=== PATIENT | male | born 1955 | race Caucasian/White ===

== ENCOUNTER 2018-10-18 10:54 | Emergency (ER) | payer OTHER, MEDICARE, BC ==
[~2018-10-18] VITALS: Ht 177.8 cm; Wt 73.6 kg
[2018-10-18 10:54] VITALS: BP 156/91
[2018-10-18 13:11] LABS: BASO # 0.1 10^3/uL (0.0-0.2); BASO % 0.4 % (0.0-1.0); EOS # 0.3 10^3/uL (0.0-0.50); HEMATOCRIT 45.5 % (42.0-52.0); HEMOGLOBIN 15.3 g/dl (13.5-17.5); LYMPH # 2.4 10^3/uL (1.5-4.5); MEAN CORPUSCULAR HEMOGLOBIN 31.5 pg (27.0-33.0); MEAN CORPUSCULAR HGB CONC 33.6 g/dl (32.0-36.5); MEAN CORPUSCULAR VOLUME 93.6 fl (80.0-96.0); MONO # 0.9 10^3/uL (0.0-0.8); MONO % 6.1 % (0.0-5.0); NEUTROPHILS # 10.6 10^3/uL (1.8-7.7); NEUTROPHILS % 74.2 % (36.0-66.0); PLATELET COUNT, AUTOMATED 380 10^3/uL (150-450); RED BLOOD COUNT 4.86 10^6/uL (4.30-6.10); WHITE BLOOD COUNT 14.3 10^3/uL (4.0-10.0)
[2018-10-18 13:30] LABS: BLOOD UREA NITROGEN 22 MG/DL (7-18); CALCIUM LEVEL 9.4 MG/DL (8.8-10.2); CARBON DIOXIDE LEVEL 26 MEQ/L (21-32); CHLORIDE LEVEL 108 MEQ/L (98-107); CREATININE FOR GFR 1.06 MG/DL (0.70-1.30); GLOMERULAR FILTRATION RATE > 60.0 (>49); GLUCOSE, FASTING 91 MG/DL (70-100); POTASSIUM SERUM 4.3 MEQ/L (3.5-5.1); SODIUM LEVEL 142 MEQ/L (136-145); URIC ACID 4.4 MG/DL (3.5-7.2)
[2018-10-18 13:38] LABS: ERYTHROCYTE SEDIMENTATION RATE 8 mm/hr (0-20)
[2018-10-18] MEDS ORDERED: KETOROLAC 60 MG/2 ML VIAL (J1885) IM ONE (14:15)
--- NOTE | 2018-10-18 14:45 | REP ---
Right elbow for views: There are no comparisons. There is a lucency in the anteromedial cortex at the diametaphysis of the proximal radius. There is a small calcification centrally within this lucency. There is no associated periosteal reactive change. Mineralization and joint spaces otherwise are unremarkable. There is no fracture or dislocation. No joint effusion. Impression: Focal corner lucency in the proximal radius as described. This is nonspecific and may represent fibrous cortical defect or bone cyst. However, there are no comparison studies to document stability. This in combination with the clinical symptoms of pain and swelling suggest this may be a more aggressive lesion. Followup MRI might be considered for further evaluation. Electronically Signed by Livan Maxwell MD 10/18/2018 02:37 P
--- NOTE | 2018-10-18 15:36 | REP ---
CT scan right elbow without contrast: History: Elbow pain and swelling. Erythema and tenderness. Elevated white blood cell count. Comparison radiographs are from earlier on this date. The radiographs were felt to show a proximal radial radiolucency. CT technique: Helical scanning is acquired and 2 mm axial images are reviewed. Coronal and sagittal MPR images are generated and reviewed. 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 There is spurring and periarticular soft-tissue calcification at the lateral and to a lesser extent, medial epicondyle. There is a small periarticular calcification adjacent to the neck of the proximal radius on its medial side toward the ulna. There is no evidence of radiolucent bone lesion in the proximal radius or elsewhere. No fracture or erosive changes seen. There is no evidence of significant joint effusion or periarticular fluid collection. No soft tissue gas is seen. 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 No acute bony abnormality. No radiolucent bone lesions seen. Electronically Signed by Khurram Rasmussen MD 10/18/2018 04:44 P
[2018-10-18] MEDS ORDERED: KETO10TAB PO (15:40)
[2018-10-18] MEDS ORDERED: CLEO300C2 PO (15:40)
--- NOTE | 2018-10-22 07:54 | ED PDOC ---
Post-Departure Follow-Up dr neves faxed formal report of right elbow for Carlos Goyal MD Oct 22, 2018 07:54
== END 2018-10-18 15:53 | disposition home or self-care (01) ==
LOC: M ED 10:54
DX: L03.113 Cellulitis of right upper limb (principal); M70.31 Other bursitis of elbow, right elbow; M77.11 Lateral epicondylitis, right elbow; M25.721 Osteophyte, right elbow; Z87.891 Personal history of nicotine dependence; Z88.0 Allergy status to penicillin
CPT/HCPCS: 73080; 73200; 80048; 84550; 85025; 85652; 96372; 99283; J1885

== ENCOUNTER → 2019-04-15 | Outpatient (CLI) | payer MEDICARE, BC ==
[~2019-04-15] MED LIST: CLEO300C2 PO; KETO10TAB PO
[2019-04-15 12:45] LABS: BASO # 0.1 10^3/uL (0.0-0.2); BASO % 0.7 % (0.0-1.0); EOS # 0.4 10^3/uL (0.0-0.5); EOS % 4.6 % (0.0-3.0); HEMATOCRIT 46.2 % (42.0-52.0); HEMOGLOBIN 15.1 g/dl (13.5-17.5); LYMPH # 2.4 10^3/uL (1.5-5.0); LYMPH % 29.7 % (24.0-44.0); MEAN CORPUSCULAR HEMOGLOBIN 30.6 pg (27.0-33.0); MEAN CORPUSCULAR HGB CONC 32.7 g/dl (32.0-36.5); MEAN CORPUSCULAR VOLUME 93.7 fl (80.0-96.0); MONO # 0.5 10^3/uL (0.0-0.8); MONO % 6.5 % (0.0-5.0); NEUTROPHILS # 4.8 10^3/uL (1.5-8.5); NEUTROPHILS % 58.4 % (36.0-66.0); PLATELET COUNT, AUTOMATED 347 10^3/uL (150-450); RED BLOOD COUNT 4.93 10^6/uL (4.30-6.10); WHITE BLOOD COUNT 8.2 10^3/uL (4.0-10.0)
[2019-04-15 12:50] LABS: ALT/SGPT 43 U/L (12-78); BILIRUBIN,TOTAL 0.6 MG/DL (0.2-1.0); BLOOD UREA NITROGEN 16 MG/DL (7-18); CALCIUM LEVEL 9.3 MG/DL (8.8-10.2); CARBON DIOXIDE LEVEL 27 MEQ/L (21-32); CHLORIDE LEVEL 109 MEQ/L (98-107); CREATININE FOR GFR 1.07 MG/DL (0.70-1.30); GLOMERULAR FILTRATION RATE > 60.0 (>49); GLUCOSE, FASTING 92 MG/DL (70-100); POTASSIUM SERUM 5.3 MEQ/L (3.5-5.1); SODIUM LEVEL 141 MEQ/L (136-145); TOTAL PROTEIN 7.6 GM/DL (6.4-8.2)
== END ==
LOC: M WUC 08:28
PROVIDERS: ATTEND Nurse Practitioner Family
DX: Z00.00 Encounter for general adult medical examination without abnormal findings (principal)

== ENCOUNTER → 2019-04-22 | Outpatient (CLI) | payer MEDICARE, BC ==
[2019-04-22 14:38] LABS: BLOOD UREA NITROGEN 19 MG/DL (7-18); CALCIUM LEVEL 9.1 MG/DL (8.8-10.2); CARBON DIOXIDE LEVEL 29 MEQ/L (21-32); CHLORIDE LEVEL 111 MEQ/L (98-107); CREATININE FOR GFR 1.06 MG/DL (0.70-1.30); GLOMERULAR FILTRATION RATE > 60.0 (>49); GLUCOSE, FASTING 93 MG/DL (70-100); POTASSIUM SERUM 4.5 MEQ/L (3.5-5.1); SODIUM LEVEL 143 MEQ/L (136-145)
== END ==
LOC: M WUC 08:31
PROVIDERS: ATTEND Nurse Practitioner Family
DX: E87.5 Hyperkalemia (principal)

== ENCOUNTER → 2020-05-23 | Outpatient (CLI) | payer MEDICARE ==
[2020-05-23 13:22] LABS: BASO # 0.1 10^3/uL (0.0-0.2); BASO % 0.8 % (0.0-1.0); EOS # 0.4 10^3/uL (0.0-0.5); EOS % 5.4 % (0.0-3.0); HEMATOCRIT 44.3 % (42.0-52.0); HEMOGLOBIN 14.7 g/dl (13.5-17.5); LYMPH # 2.2 10^3/uL (1.5-5.0); LYMPH % 33.6 % (24.0-44.0); MEAN CORPUSCULAR HEMOGLOBIN 32.5 pg (27.0-33.0); MEAN CORPUSCULAR HGB CONC 33.2 g/dl (32.0-36.5); MEAN CORPUSCULAR VOLUME 97.8 fl (80.0-96.0); MONO # 0.6 10^3/uL (0.0-0.8); MONO % 8.7 % (2.0-8.0); NEUTROPHILS # 3.3 10^3/uL (1.5-8.5); NEUTROPHILS % 51.3 % (36.0-66.0); PLATELET COUNT, AUTOMATED 265 10^3/uL (150-450); RED BLOOD COUNT 4.53 10^6/uL (4.30-6.10); WHITE BLOOD COUNT 6.4 10^3/uL (4.0-10.0)
[2020-05-23 14:02] LABS: ALBUMIN 3.8 GM/DL (3.2-5.2); ALT/SGPT 240 U/L (12-78); BILIRUBIN,TOTAL 0.9 MG/DL (0.2-1.0); BLOOD UREA NITROGEN 19 MG/DL (7-18); CALCIUM LEVEL 9.4 MG/DL (8.8-10.2); CARBON DIOXIDE LEVEL 27 MEQ/L (21-32); CHLORIDE LEVEL 108 MEQ/L (98-107); CHOLESTEROL LEVEL 190 MG/DL (<200); CHOLESTEROL RISK RATIO 2.878 (<5); CREATININE FOR GFR 1.07 MG/DL (0.70-1.30); FERRITIN 215 NG/ML (26-388); FOLATE > 24.0 NG/ML; FREE T4 1.11 NG/DL (0.76-1.46); GLOMERULAR FILTRATION RATE > 60.0 (>49); GLUCOSE, FASTING 91 MG/DL (70-100); HDL CHOLESTEROL 66 MG/DL (>40); IRON (FE) 164 UG/DL (65-175); LDL CHOLESTEROL 110 MG/DL (<100); NON-HDL-C 124 MG/DL; PERCENT SATURATION 44.6 % (19.7-50.0); POTASSIUM SERUM 4.5 MEQ/L (3.5-5.1); SODIUM LEVEL 142 MEQ/L (136-145); THYROID STIMULATING HORMONE 0.392 uIU/ML (0.358-3.740); TOTAL IRON BINDING CAPACITY 368 UG/DL (250-450); TRIGLYCERIDES LEVEL 69 MG/DL (<150); VITAMIN B12 LEVEL 1274 PG/ML
== END ==
LOC: M WUC 10:59
PROVIDERS: ATTEND Nurse Practitioner Family
DX: R53.83 Other fatigue (principal); J32.9 Chronic sinusitis, unspecified; Z79.899 Other long term (current) drug therapy

== ENCOUNTER → 2020-05-24 | Outpatient (CLI) | payer MEDICARE, BC | LOC: M LABSMTC 08:43 | PROVIDERS: ATTEND Anesthesiology | DX: Z20.828 Contact with and (suspected) exposure to other viral communicable diseases (principal); Z11.59 Encounter for screening for other viral diseases ==

== ENCOUNTER 2020-05-29 09:46 | Day surgery (SDC) | payer MEDICARE ==
[~2020-05-29] VITALS: Ht 177.8 cm; Wt 63.0 kg
[~2020-05-29 09:46] MED LIST changes: +NS 1,000 ML IV ONE
[2020-05-29] MEDS ORDERED: LIDOCAINE 2% 100MG/5ML SDV (FOR ANES.) As Ordered ONE (10:37)
[2020-05-29] MEDS ORDERED: propofoL 200 MG/20 ML VIAL As Ordered ONE (10:37)
--- NOTE | 2020-05-29 12:48 | ROOR ---
Patient Name: Ok Gastelum Procedure Date: 05/29/2020 11:30 AM Date of : 1955 Age: 65 Room: [facility] Gender: Male Note Status: Finalized Procedure: Colonoscopy Indications: Screening for colorectal malignant neoplasm, This is the patient's first colonoscopy Providers: Hosea London MD Referring MD: Tequila Lira MD Requesting Provider: Medicines: Monitored Anesthesia Care Complications: No immediate complications. Procedure: Pre-Anesthesia Assessment: - Prior to the procedure, a History and Physical was performed, and patient medications and allergies were reviewed. The patient is competent. The risks and benefits of the procedure and the sedation options and risks were discussed with the patient. All questions were answered and informed consent was obtained. Patient identification and proposed procedure were verified by the physician, the nurse and the center punch operator in the procedure room. Mental Status Examination: alert and oriented. Airway Examination: normal oropharyngeal airway and neck mobility. Prophylactic Antibiotics: The patient does not require prophylactic antibiotics. Prior Anticoagulants: The patient has taken no previous anticoagulant or antiplatelet agents. ASA Grade Assessment: II - A patient with mild systemic disease. After reviewing the risks and benefits, the patient was deemed in satisfactory condition to undergo the procedure. The anesthesia plan was to use monitored anesthesia care (MAC). Immediately prior to administration of medications, the patient was re-assessed for adequacy to receive sedatives. The heart rate, respiratory rate, oxygen saturations, blood pressure, adequacy of pulmonary ventilation, and response to care were monitored throughout the procedure. The physical status of the patient was re-assessed after the procedure. The Colonoscope was introduced through the anus and advanced to the cecum, identified by appendiceal orifice and ileocecal valve. The colonoscopy was performed without difficulty. The patient tolerated the procedure well. The quality of the bowel preparation was excellent. Findings: The perianal and digital rectal examinations were normal. A 13 mm polyp was found at 20 cm proximal to the anus. The polyp was pedunculated. The polyp was removed with a hot snare. Resection and retrieval were complete. The exam was otherwise without abnormality. Impression: - One 13 mm polyp at 20 cm proximal to the anus, removed with a hot snare. Resected and retrieved. - The examination was otherwise normal. Recommendation: - Discharge patient to home. - Resume previous diet. - Continue present medications. - Await pathology results. - Return to endoscopist in 2 weeks. Procedure Code(s): --- Professional --- 74766, Colonoscopy, flexible; with removal of tumor(s), polyp(s), or other lesion(s) by snare technique Diagnosis Code(s): --- Professional --- Z12.11, Encounter for screening for malignant neoplasm of colon K63.5, Polyp of colon CPT copyright 2019 [employer]. All rights reserved. The codes documented in this report are preliminary and upon dosimetrist review may be revised to meet current compliance requirements. Hosea London MD Hosea London MD 05/29/2020 12:47:47 PM Electronically signed by Hosea London MD Number of Addenda: 0 Note Initiated On: 05/29/2020 11:30 AM Estimated Blood Loss: Estimated blood loss: none.
[2020-05-29 12:50] VITALS: BP 162/82
== END 2020-05-29 13:03 | disposition home or self-care (01) ==
LOC: M OPP 09:46
PROVIDERS: ATTEND Surgery
DX: Z12.11 Encounter for screening for malignant neoplasm of colon (principal); Z80.0 Family history of malignant neoplasm of digestive organs; D12.6 Benign neoplasm of colon, unspecified; Z87.891 Personal history of nicotine dependence; Z88.0 Allergy status to penicillin

== ENCOUNTER → 2020-06-05 | Outpatient (CLI) | payer MEDICARE ==
[~2020-06-05] MED LIST changes: -NS 1,000 ML IV ONE
[2020-06-05 22:49] LABS: ALBUMIN 4.3 GM/DL (3.2-5.2); ALT/SGPT 146 U/L (12-78); BILIRUBIN,DIRECT 0.2 MG/DL (0.0-0.2); BILIRUBIN,TOTAL 0.7 MG/DL (0.2-1.0); HEPATITIS B SURFACE ANTIBODY NEGATIVE (POSITIVE); HEPATITIS B SURFACE ANTIGEN NEGATIVE (NEGATIVE); HEPATITIS C VIRUS ABY INDEX < 0.0 INDEX (<0.8); TOTAL PROTEIN 7.8 GM/DL (6.4-8.2)
[2020-06-07 07:08] LABS: HBVCOREDIFF1 Negative (Negative); HBVCOREDIFF2 Negative (Negative)
== END ==
LOC: M WUC 15:53
PROVIDERS: ATTEND Nurse Practitioner Family
DX: R94.5 Abnormal results of liver function studies (principal)

== ENCOUNTER → 2020-06-17 | Outpatient (CLI) | payer MEDICARE ==
--- NOTE | 2020-06-24 15:32 | REP ---
INDICATION: ELEVTED LFT'S. Repeat dictation. COMPARISON: Comparison CT study abdomen pelvis September 19, 2015.. TECHNIQUE: Right upper quadrant sonography. FINDINGS: Scanning through the right upper quadrant of the abdomen demonstrates a normal sized, thin-walled gallbladder without evidence of stone or polyp. Common bile duct is normal measuring 0.6 cm in greatest diameter. No focal liver lesion is seen. Liver size is normal. No pancreatic abnormality is observed. No right renal mass or hydronephrosis is seen. There is no evidence of ascites. The right kidney measures 12.5 x 4.8 x 3.4 cm. There are 2 small cysts in the left kidney including an upper pole cyst measuring 1.9 cm and a lower pole cyst 1.4 cm in greatest diameter. IMPRESSION: Small cysts in the right kidney. Otherwise negative right upper quadrant sonography.. <Electronically signed by Thiago Rasmussen > 06/24/20 1528
== END ==
LOC: M RAD 07:02
PROVIDERS: ATTEND Nurse Practitioner Family
DX: Q61.02 Congenital multiple renal cysts (principal); R94.5 Abnormal results of liver function studies

== ENCOUNTER → 2020-12-17 | Outpatient (CLI) | payer MEDICARE ==
[2020-12-17 20:06] LABS: BASO # 0.1 10^3/uL (0.0-0.2); BASO % 0.9 % (0.0-1.0); EOS # 0.4 10^3/uL (0.0-0.5); EOS % 3.8 % (0.0-3.0); HEMATOCRIT 41.1 % (42.0-52.0); HEMOGLOBIN 13.6 g/dl (13.5-17.5); LYMPH % 32.3 % (24.0-44.0); MEAN CORPUSCULAR HEMOGLOBIN 31.4 pg (27.0-33.0); MEAN CORPUSCULAR HGB CONC 33.1 g/dl (32.0-36.5); MEAN CORPUSCULAR VOLUME 94.9 fl (80.0-96.0); MONO # 0.7 10^3/uL (0.0-0.8); MONO % 7.1 % (2.0-8.0); NEUTROPHILS # 5.1 10^3/uL (1.5-8.5); NEUTROPHILS % 55.6 % (36.0-66.0); PLATELET COUNT, AUTOMATED 338 10^3/uL (150-450); RED BLOOD COUNT 4.33 10^6/uL (4.30-6.10); WHITE BLOOD COUNT 9.3 10^3/uL (4.0-10.0)
[2020-12-17 20:18] LABS: ALBUMIN 3.8 GM/DL (3.2-5.2); ALT/SGPT 29 U/L (12-78); BILIRUBIN,DIRECT < 0.1 MG/DL (0.0-0.2); BILIRUBIN,TOTAL 0.3 MG/DL (0.2-1.0); BLOOD UREA NITROGEN 19 MG/DL (7-18); CALCIUM LEVEL 9.7 MG/DL (8.8-10.2); CARBON DIOXIDE LEVEL 28 MEQ/L (21-32); CHLORIDE LEVEL 109 MEQ/L (98-107); CREATININE FOR GFR 1.31 MG/DL (0.70-1.30); GLOMERULAR FILTRATION RATE 58.1 (>49); GLUCOSE, FASTING 144 MG/DL (70-100); POTASSIUM SERUM 3.9 MEQ/L (3.5-5.1); SODIUM LEVEL 140 MEQ/L (136-145); TOTAL PROTEIN 7.3 GM/DL (6.4-8.2)
== END ==
LOC: M WUC 15:41
PROVIDERS: ATTEND Nurse Practitioner Family
DX: R74.01 Elevation of levels of liver transaminase levels (principal)

== ENCOUNTER → 2021-08-03 | Outpatient (CLI) | payer MEDICARE ==
[2021-08-03 13:28] LABS: ALBUMIN 3.8 GM/DL (3.2-5.2); ALT/SGPT 38 U/L (12-78); BILIRUBIN,TOTAL 0.4 MG/DL (0.2-1.0); BLOOD UREA NITROGEN 22 MG/DL (7-18); CALCIUM LEVEL 9.7 MG/DL (8.8-10.2); CARBON DIOXIDE LEVEL 26 MEQ/L (21-32); CHLORIDE LEVEL 108 MEQ/L (98-107); CHOLESTEROL LEVEL 233 MG/DL (<200); CHOLESTEROL RISK RATIO 4.755 (<5); CREATININE FOR GFR 1.15 MG/DL (0.70-1.30); GLOMERULAR FILTRATION RATE > 60.0 (>49); GLUCOSE, FASTING 89 MG/DL (70-100); HDL CHOLESTEROL 49 MG/DL (>40); LDL CHOLESTEROL 146 MG/DL (<100); NON-HDL-C 184 MG/DL; POTASSIUM SERUM 4.5 MEQ/L (3.5-5.1); SODIUM LEVEL 141 MEQ/L (136-145); TOTAL PROTEIN 7.3 GM/DL (6.4-8.2); TRIGLYCERIDES LEVEL 191 MG/DL (<150)
== END ==
LOC: M WUC 08:50
PROVIDERS: ATTEND Nurse Practitioner Family
DX: Z00.00 Encounter for general adult medical examination without abnormal findings (principal)

== ENCOUNTER → 2022-08-03 | Outpatient (CLI) | payer MEDICARE ==
[2022-08-03 10:41] LABS: ALBUMIN 4.1 G/DL (3.2-5.2); ALKALINE PHOSPHATASE 104 U/L (46-116); ALT/SGPT 15 U/L (7.0-40); AST/SGOT 12 U/L (<34); BILIRUBIN,TOTAL 0.6 MG/DL (0.3-1.2); BLOOD UREA NITROGEN 17 MG/DL (9-23); CALCIUM LEVEL 9.2 MG/DL (8.3-10.6); CARBON DIOXIDE LEVEL 27 MMOL/L (20-31); CHLORIDE LEVEL 108 MMOL/L (98-107); CHOLESTEROL LEVEL 231 MG/DL (<200); CHOLESTEROL RISK RATIO 4.32 (<5); CREATININE FOR GFR 1.01 MG/DL (0.70-1.30); GLOMERULAR FILTRATION RATE > 60.0 (>49); GLUCOSE, FASTING 89 MG/DL (74-106); HDL CHOLESTEROL 53.4 MG/DL (>40); NON-HDL-C 177.6 MG/DL; POTASSIUM SERUM 5.3 MMOL/L (3.5-5.1); SODIUM LEVEL 141 MMOL/L (136-145); TRIGLYCERIDES LEVEL 138 MG/DL (<150)
== END ==
LOC: M WUC 08:19
PROVIDERS: ATTEND Nurse Practitioner Family
DX: E78.2 Mixed hyperlipidemia (principal)

== ENCOUNTER → 2023-08-04 | Outpatient (CLI) | payer MEDICARE ==
[2023-08-04 11:59] LABS: ALKALINE PHOSPHATASE 100 U/L (46-116); ALT/SGPT 22 U/L (7.0-40); AST/SGOT 16 U/L (<34); BILIRUBIN,TOTAL 0.7 MG/DL (0.3-1.2); BLOOD UREA NITROGEN 18 MG/DL (9-23); CALCIUM LEVEL 9.1 MG/DL (8.3-10.6); CARBON DIOXIDE LEVEL 26 MMOL/L (20-31); CHLORIDE LEVEL 106 MMOL/L (98-107); CHOLESTEROL LEVEL 228 MG/DL (<200); CHOLESTEROL RISK RATIO 3.95 (<5); CREATININE FOR GFR 1.02 MG/DL (0.70-1.30); GLOMERULAR FILTRATION RATE > 60.0 (>42); GLUCOSE, FASTING 96 MG/DL (74-106); HDL CHOLESTEROL 57.7 MG/DL (>40); LDL CHOLESTEROL 140.9 MG/DL (<100); NON-HDL-C 170.3 MG/DL; POTASSIUM SERUM 4.4 MMOL/L (3.5-5.1); PSA SCREENING 0.43 NG/ML (< 4.00); SODIUM LEVEL 139 MMOL/L (136-145); TOTAL PROTEIN 6.9 G/DL (5.7-8.2); TRIGLYCERIDES LEVEL 147 MG/DL (<150)
== END ==
LOC: M WUC 08:16
PROVIDERS: ATTEND Nurse Practitioner Family
DX: Z00.00 Encounter for general adult medical examination without abnormal findings (principal); E78.2 Mixed hyperlipidemia; Z12.5 Encounter for screening for malignant neoplasm of prostate
CPT/HCPCS: 36415; 80053; 80061; G0103

== ENCOUNTER → 2023-10-04 | Outpatient (REF) | payer MEDICARE | LOC: M LAB REF 16:49 | PROVIDERS: ATTEND Family Medicine | DX: R35.0 Frequency of micturition (principal) ==

== ENCOUNTER → 2023-12-08 | Day surgery (SDC) | payer MEDICARE ==
[~2023-12-08] VITALS: Ht 177.8 cm; Wt 66.6 kg
[~2023-12-08] MED LIST changes: +FAMO20TA PO; +LIDOCAINE 2% 100MG/5ML SDV (FOR ANES.) As Ordered ONE; +NS 250 ML IV ONE; +propofoL 200 MG/20 ML VIAL As Ordered ONE
[2023-12-08 12:24] VITALS: TEMP 97.4
[2023-12-08 12:45] VITALS: BP 137/84; O2SAT 97
== END | disposition home or self-care (01) ==
LOC: M OPP 10:21
PROVIDERS: ATTEND Surgery
DX: Z12.11 Encounter for screening for malignant neoplasm of colon (principal); D12.5 Benign neoplasm of sigmoid colon; D12.8 Benign neoplasm of rectum; K21.9 Gastro-esophageal reflux disease without esophagitis; Z86.0101 Personal history of adenomatous and serrated colon polyps; Z79.899 Other long term (current) drug therapy; Z88.0 Allergy status to penicillin; Z91.048 Other nonmedicinal substance allergy status; Z80.0 Family history of malignant neoplasm of digestive organs; Z87.891 Personal history of nicotine dependence